=== PATIENT | male | born 1995 | race Caucasian/White ===

== ENCOUNTER 2018-02-24 21:31 | Inpatient (IN) ==
[2018-02-24 22:00] LABS: Basophils # 0.1 K/mcL (0.0-0.2); Basophils % 0.6 %; Eosinophils % 0.4 %; Hematocrit 46.4 % (37.5-50.1); Hemoglobin 16.4 g/dL (12.9-16.9); Immature Granulocytes % 0.2 % (0-4); Lymphocytes # 1.5 K/mcL (0.6-4.6); Lymphocytes % 17.2 %; Mean Corpuscular HGB Conc 35.3 g/dL (31.6-35.5); Mean Corpuscular Hemoglobin 30.8 pg (28.0-33.3); Mean Corpuscular Volume 87.1 fL (83.0-100.0); Mean Platelet Volume 12.3 fL (9.4-12.4); Monocytes # 0.6 K/mcL (0.0-1.3); Monocytes % 6.6 %; Neutrophils # 6.7 K/mcL (1.6-8.9); Platelet Count 223 K/mcL (140-400); Red Blood Count 5.33 M/mcL (4.19-5.50); Red Cell Distribution Width 12.1 % (11.5-14.5)
[2018-02-24 22:01] LABS: Bilirubin,Urine Negative (Negative); Blood,Urine Negative (Negative); Clarity,Urine Turbid (Clear); Color,Urine Yellow (Yellow); Glucose,Urine (UA) Normal (Normal); Ketones,Urine Trace mg/dL (Negative); Leukocyte Esterase,Urine Moderate (Negative); Nitrite,Urine Negative (Negative); Protein,Urine Trace mg/dL (Neg-Trace); Specific Gravity,Urine 1.027 (1.010-1.025); Urobilinogen,Urine Normal (Normal)
[2018-02-24 22:03] LABS: Bacteria,Urine None Seen per hpf (None-Few); Hyaline Casts,Urine Few per lpf (None-Few); Squamous Epithelial Cell,Urine Many per lpf (None-Few); WBC,Urine 30-50 per hpf (0-3)
[2018-02-24] MEDS ORDERED: Lidocaine/EPI 1:100k 1% 30 ML VIAL INFILT ONE (22:09)
--- NOTE | 2018-02-24 22:11 | Emergency Department Note ---
Disposition Clinical Impression: Laceration, Suicide attempt, History of chlamydia Disposition: Still a Patient Condition: Fair Referrals: NONE,PCP [Primary Care Provider] - Forms: ED Satisfaction Letter Psych HPI - General Chief Complaint: ED Psychiatric Symptoms Stated Complaint: SI Time Seen by Provider: 02/24/18 21:54 Source: patient, will call order clerk Mode of arrival: ambulatory Limitations: no limitations Nursing Notes Reviewed: Yes Vital Signs Reviewed: Yes - History of Present Illness HPI Narrative: 23-year-old male with history of anxiety and depression presents for evaluation of cutting and suicidal ideation. Patient states he got in our unit with his significant other. States that since any made several some clicking was to his left arm and punch several things that his right fist. Patient states he has a history of cutting in the past. Patient denies any intentional ingestion. Patient denies any homicidal ideation. Denies any drugs or alcohol use. Patient denies any medications to help with his depression. Denies any hallucinations or delusions. - Related Data Home Medications Medication Instructions Recorded Confirmed No Known Home Drugs 02/24/18 02/24/18 Allergies Allergy/AdvReac Type Severity Reaction Status Date / Time No Known Allergies Allergy Verified 12/01/17 09:18 All systems ED: reviewed and negative except as stated. Constitutional: Denies: fever Cardiovascular: Denies: chest pain Respiratory: Denies: cough, dyspnea Gastrointestinal: Denies: abdominal pain, nausea, vomiting Past Medical History - Past Medical History Source: patient Medical history: Reports: no medical history Psychiatric history: Reports: anxiety, depression, prior suicide attempt, previous psychiatric hospitalization - Social History Smoking Status: Former smoker Smokeless Tobacco Status: No Alcohol use: Reports: occasionally Drug use: Reports: none Physical Exam - General Limitations: no limitations General appearance: anxious - Head Head exam: atraumatic, normocephalic, normal inspection - Eye Eye exam: Present: normal appearance, PERRL, EOMI - ENT ENT exam: normal exam, normal oropharynx, mucous membranes moist - Neck Neck exam: Present: normal inspection, trachea midline - Chest Chest inspection: Present: normal inspection, symmetric chest wall rise - Respiratory Respiratory exam: Present: normal lung sounds bilaterally. Absent: respiratory distress - Cardiovascular Cardiovascular exam: Present: regular rate, normal rhythm. Absent: systolic murmur - Abdominal Exam Abdominal exam: Present: soft, Non-Tender - Expanded Upper Extremity Exam Shoulder exam: Present: normal inspection Arm exam: Present: normal inspection Elbow exam: Present: normal inspection Forearm/Wrist exam: Present: other (18 lacerations of varying degrees of on the volar aspect of the left forearm. Hemostatic.) Hand exam: Present: normal inspection, other (Evidence of superficial skin abrasions on the dorsal surface of the right hand.). Absent: tenderness Neuromotor exam: Normal: wrist extension, thumb opposition, thumb IP flexion, thumb adduction, fingers 2-5 abduction Vascular exam: Normal: capillary refill, radial pulse - Expanded Lower Extremity Exam Neurovascular/Tendon exam: Present: normal capillary refill - Back Exam Back exam: Present: normal inspection - Neurological Exam Neurological exam: Present: alert, oriented X3 - Skin Skin exam: Present: warm, dry, intact, normal color Course Course Narrative: Patient seen and examined. Patient will require sutures for some of the lacerations on the volar aspect of the left hand. Patient will also require medical clearance and psychiatric evaluation. Tetanus was updated. - Reevaluation(s) Reevaluation #1: Patient's wounds were repaired by the medical student. Under my supervision. Please see their documentation. Patient urine also showed signs of infection likely secondary to an STI. Patient was treated appropriately. Patient was medically cleared and will need to be evaluated by Ia. Patient will be signed out to the night supervisor provider. Patient does state that he has history of chlamydia and is sexually active. Patient will be empirically treated and instructions to follow-up with his primary care physician regarding that diagnosis. Patient also was given instructions on laceration and wound healing and watching for signs of infection. Patient will need sutures removed within 10 days. Time: 23:01 Vital Signs Temperature 99.1 F 02/24/18 21:35 Pulse Rate 105 02/24/18 21:35 Respiratory Rate 18 02/24/18 21:35 Blood Pressure 134/79 02/24/18 21:35 O2 Sat by Pulse Oximetry 97 02/24/18 21:35 Temperature 98.9 F 02/24/18 22:42 Pulse Rate 93 02/24/18 22:42 Respiratory Rate 18 02/24/18 22:42 Blood Pressure 111/76 02/24/18 22:42 O2 Sat by Pulse Oximetry 96 02/24/18 22:42 Oxygen Delivery Oxygen Delivery Room Air Psych - Lab Data Result diagrams: 02/24/18 21:45 02/24/18 21:45 Lab Results 02/24/18 02/24/18 02/24/18 Range/Units 21:43 21:45 21:45 WBC 8.9 (4.3-11.1) K/mcL RBC 5.33 (4.19-5.50) M/mcL Hgb 16.4 (12.9-16.9) g/dL Hct 46.4 (37.5-50.1) % MCV 87.1 (83.0-100.0) fL MCH 30.8 (28.0-33.3) pg MCHC 35.3 (31.6-35.5) g/dL RDW 12.1 (11.5-14.5) % Plt Count 223 (140-400) K/mcL MPV 12.3 (9.4-12.4) fL Immature Gran % 0.2 (0-4) % Seg Neutrophils % 75.0 % Lymphocytes % 17.2 % Monocytes % 6.6 % Eosinophils % 0.4 % Basophils % 0.6 % Neutrophils # 6.7 (1.6-8.9) K/mcL Lymphocytes # 1.5 (0.6-4.6) K/mcL Monocytes # 0.6 (0.0-1.3) K/mcL Eosinophils # 0.0 (0.0-0.6) K/mcL Basophils # 0.1 (0.0-0.2) K/mcL Sodium 140 (136-145) mEq/L Potassium 3.9 (3.5-5.1) mEq/L Chloride 105 (98-107) mEq/L Carbon Dioxide 25 (23-29) mEq/L BUN 12 (6-20) mg/dL Creatinine 0.98 (0.70-1.30) mg/dL Est GFR ( Amer) > 60 (> 60) Est GFR (Non-Af Amer) > 60 (> 60) BUN/Creatinine Ratio 12 (6-26) Glucose 97 (70-105) mg/dL Calculated Osmolality 290 (280-300) Calcium 10.4 H (8.6-10.3) mg/dL Urine Color Yellow (Yellow) Urine Clarity Turbid A (Clear) Urine pH 7.0 (5.0-8.0) pH Units Ur Specific [place] 1.027 H (1.010-1.025) Urine Protein Trace (Neg-Trace) mg/dL Urine Glucose (UA) Normal (Normal) mg/dL Urine Ketones Trace H (Negative) mg/dL Urine Blood Negative (Negative) Urine Nitrite Negative (Negative) Urine Bilirubin Negative (Negative) Urine Urobilinogen Normal (Normal) mg/dL Ur Leukocyte Esterase Moderate H (Negative) Urine Microscopic RBC 5-15 H (0-3) per hpf Urine Microscopic WBC 30-50 H (0-3) per hpf Ur Squamous Epith Cells Many H (None-Few) per lpf Urine Bacteria None Seen (None-Few) per hpf Hyaline Casts Few (None-Few) per lpf Ur Culture Indicated? NO. A (NO) Salicylates < 2.5 L (15.0-30.0) mg/dL Urine Opiates Screen (Qvgcxc=156) ng/mL Acetaminophen < 10 L (10-20) mcg/mL Ur Barbiturates Screen (Vqneex=131) ng/mL Ur Phencyclidine Scrn (Cutoff=25) ng/mL Ur Amphetamines Screen (Xrzxol=4158) ng/mL U Benzodiazepines Scrn (Iscdzy=524) ng/mL Urine Cocaine Screen (Cutoff= 300) ng/mL U Marijuana (THC) Screen (Cutoff = 50) ng/mL Ethyl Alcohol < 10 (Less than 10) mg/dL 02/24/18 Range/Units 21:49 WBC (4.3-11.1) K/mcL RBC (4.19-5.50) M/mcL Hgb (12.9-16.9) g/dL Hct (37.5-50.1) % MCV (83.0-100.0) fL MCH (28.0-33.3) pg MCHC (31.6-35.5) g/dL RDW (11.5-14.5) % Plt Count (140-400) K/mcL MPV (9.4-12.4) fL Immature Gran % (0-4) % Seg Neutrophils % % Lymphocytes % % Monocytes % % Eosinophils % % Basophils % % Neutrophils # (1.6-8.9) K/mcL Lymphocytes # (0.6-4.6) K/mcL Monocytes # (0.0-1.3) K/mcL Eosinophils # (0.0-0.6) K/mcL Basophils # (0.0-0.2) K/mcL Sodium (136-145) mEq/L Potassium (3.5-5.1) mEq/L Chloride (98-107) mEq/L Carbon Dioxide (23-29) mEq/L BUN (6-20) mg/dL Creatinine (0.70-1.30) mg/dL Est GFR ( Amer) (> 60) Est GFR (Non-Af Amer) (> 60) BUN/Creatinine Ratio (6-26) Glucose (70-105) mg/dL Calculated Osmolality (280-300) Calcium (8.6-10.3) mg/dL Urine Color (Yellow) Urine Clarity (Clear) Urine pH (5.0-8.0) pH Units Ur Specific [place] (1.010-1.025) Urine Protein (Neg-Trace) mg/dL Urine Glucose (UA) (Normal) mg/dL Urine Ketones (Negative) mg/dL Urine Blood (Negative) Urine Nitrite (Negative) Urine Bilirubin (Negative) Urine Urobilinogen (Normal) mg/dL Ur Leukocyte Esterase (Negative) Urine Microscopic RBC (0-3) per hpf Urine Microscopic WBC (0-3) per hpf Ur Squamous Epith Cells (None-Few) per lpf Urine Bacteria (None-Few) per hpf Hyaline Casts (None-Few) per lpf Ur Culture Indicated? (NO) Salicylates (15.0-30.0) mg/dL Urine Opiates Screen Negative (Dvismx=071) ng/mL Acetaminophen (10-20) mcg/mL Ur Barbiturates Screen Negative (Tuvgbr=786) ng/mL Ur Phencyclidine Scrn Negative (Cutoff=25) ng/mL Ur Amphetamines Screen Negative ([place]=0884) ng/mL U Benzodiazepines Scrn Negative (Mznnha=632) ng/mL Urine Cocaine Screen Negative (Cutoff= 300) ng/mL U Marijuana (THC) Screen Negative (Cutoff = 50) ng/mL Ethyl Alcohol (Less than 10) mg/dL Psychiatric Medical Clearance - Medical Clearance Checklist Medical History: No Social History Section defined Current Vitals: Last Vital Signs Temp 98.9 F 02/24/18 22:42 Pulse 93 02/24/18 22:42 Resp 18 02/24/18 22:42 BP 111/76 02/24/18 22:42 Pulse Ox 96 02/24/18 22:42 Psychiatric Lab Panel: Drug Levels and Toxicity 02/24/18 02/24/18 21:45 21:49 Urine Opiates Screen Negative Acetaminophen < 10 L Ur Barbiturates Screen Negative Ur Phencyclidine Scrn Negative Ur Amphetamines Screen Negative U Benzodiazepines Scrn Negative Urine Cocaine Screen Negative U Marijuana (THC) Screen Negative Ethyl Alcohol < 10 Abnormal Labs: Abnormal lab results Calcium 10.4 mg/dL (8.6-10.3) H 02/24/18 21:45 Urine Clarity Turbid (Clear) A 02/24/18 21:43 Ur Specific [place] 1.027 (1.010-1.025) H 02/24/18 21:43 Urine Ketones Trace mg/dL (Negative) H 02/24/18 21:43 Ur Leukocyte Esterase Moderate (Negative) H 02/24/18 21:43 Urine Microscopic RBC 5-15 per hpf (0-3) H 02/24/18 21:43 Urine Microscopic WBC 30-50 per hpf (0-3) H 02/24/18 21:43 Ur Squamous Epith Cells Many per lpf (None-Few) H 02/24/18 21:43 Ur Culture Indicated? NO. (NO) A 02/24/18 21:43 Salicylates < 2.5 mg/dL (15.0-30.0) L 02/24/18 21:45 Acetaminophen < 10 mcg/mL (10-20) L 02/24/18 21:45 Statement of Medical Clearance: I have evaluated the patient, reviewed diagnostic information, and certify that the patient's medical condition is sufficiently stable that transfer to the psychiatric unit does not pose a significant risk of deterioration. S.Lucien - Geena Situation: Demographics Background: Presenting Complaint Assessment: Vital Signs, Patient/Family Expectation Recommendation: Barrier(s) to disposition, Recommendation based on pending studies, treatments, or consults S.B.Andre Report Given to: Ge Vargas Time: 23:07
[2018-02-24 22:25] LABS: Acetaminophen < 10 mcg/mL (10-20); BUN/Creatinine Ratio 12 (6-26); Blood Urea Nitrogen 12 mg/dL (6-20); Calcium 10.4 mg/dL (8.6-10.3); Carbon Dioxide 25 mEq/L (23-29); Chloride 105 mEq/L (98-107); Ethanol < 10 mg/dL (Less than 10); Glucose 97 mg/dL (70-105); Osmolality,Calculated 290 (280-300); Potassium 3.9 mEq/L (3.5-5.1); Salicylate < 2.5 mg/dL (15.0-30.0); Sodium 140 mEq/L (136-145); eGFR For African Americans > 60 (> 60); eGFR For Non-African Americans > 60 (> 60)
[2018-02-24 22:26] LABS: Amphetamine Screen,Urine Negative ng/mL (Cutoff=1000); Barbiturate Screen,Urine Negative ng/mL (Cutoff=200); Benzodiazepines Screen,Urine Negative ng/mL (Cutoff=200); Cannabinoid Screen,Urine Negative ng/mL (Cutoff = 50); Cocaine Screen,Urine Negative ng/mL (Cutoff= 300); Opiate Screen,Urine Negative ng/mL (Cutoff=300); Phencyclidine Screen,Urine Negative ng/mL (Cutoff=25)
--- NOTE | 2018-02-24 22:45 | Emergency Department Note ---
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 Mode of arrival: ambulatory Limitations: no limitations - History of Present Illness Pain Scale: 0 - Related Data Home Medications Medication Instructions Recorded Confirmed No Known Home Drugs 02/24/18 02/24/18 Allergies Allergy/AdvReac Type Severity Reaction Status Date / Time No Known Allergies Allergy Verified 12/01/17 09:18 Constitutional: Denies: fever Cardiovascular: Denies: chest pain Respiratory: Denies: cough, dyspnea Gastrointestinal: Denies: abdominal pain, nausea, vomiting Past Medical History - Past Medical History Medical history: Reports: no medical history Psychiatric history: Reports: anxiety, depression, prior suicide attempt, previous psychiatric hospitalization - Social History Smoking Status: Former smoker Smokeless Tobacco Status: No Alcohol use: Reports: occasionally Drug use: Reports: none Physical Exam - General Limitations: no limitations General appearance: anxious Course Vital Signs Temperature 99.1 F 02/24/18 21:35 Pulse Rate 105 02/24/18 21:35 Respiratory Rate 18 02/24/18 21:35 Blood Pressure 134/79 02/24/18 21:35 O2 Sat by Pulse Oximetry 97 02/24/18 21:35 Temperature 98.9 F 02/24/18 22:42 Pulse Rate 93 02/24/18 22:42 Respiratory Rate 18 02/24/18 22:42 Blood Pressure 111/76 02/24/18 22:42 O2 Sat by Pulse Oximetry 96 02/24/18 22:42 Oxygen Delivery Oxygen Delivery Room Air Procedures - Laceration Laceration 1 Site: upper extremity Side (If applicable): left Size (cm): 3 Description: linear Depth: simple, single layer Local Anesthetic: lidocaine 1%, with epi Amount of Anesthesia Used (mL): 1 Pre-repair: wound explored, irrigated extensively, deep structures intact Skin layer closed with: other (Prolene) Size: 4-0 Number of sutures/stephanie: 2 Technique: simple, interrupted Laceration 2 Site: upper extremity Side (If applicable): left Size (cm): 4 Description: linear Depth: simple, single layer Local Anesthetic: lidocaine 1%, with epi Amount of Anesthesia Used (mL): 2 Pre-repair: wound explored, irrigated extensively, deep structures intact Skin layer closed with: other (Prolene) Size: 4-0 Number of sutures/stephanie: 6 Laceration 3 Site: upper extremity Side (If applicable): left Size (cm): 5 Description: linear Depth: simple, single layer Local Anesthetic: lidocaine 1%, with epi Amount of Anesthesia Used (mL): 2 Pre-repair: wound explored, irrigated extensively, deep structures intact Skin layer closed with: other (Prolene) Size: 4-0 Number of sutures/stephanie: 7 Technique: simple, interrupted Medical Decision Making - Lab Data Result diagrams: 02/24/18 21:45 02/24/18 21:45 Lab Results 02/24/18 02/24/18 02/24/18 Range/Units 21:43 21:45 21:45 WBC 8.9 (4.3-11.1) K/mcL RBC 5.33 (4.19-5.50) M/mcL Hgb 16.4 (12.9-16.9) g/dL Hct 46.4 (37.5-50.1) % MCV 87.1 (83.0-100.0) fL MCH 30.8 (28.0-33.3) pg MCHC 35.3 (31.6-35.5) g/dL RDW 12.1 (11.5-14.5) % Plt Count 223 (140-400) K/mcL MPV 12.3 (9.4-12.4) fL Immature Gran % 0.2 (0-4) % Seg Neutrophils % 75.0 % Lymphocytes % 17.2 % Monocytes % 6.6 % Eosinophils % 0.4 % Basophils % 0.6 % Neutrophils # 6.7 (1.6-8.9) K/mcL Lymphocytes # 1.5 (0.6-4.6) K/mcL Monocytes # 0.6 (0.0-1.3) K/mcL Eosinophils # 0.0 (0.0-0.6) K/mcL Basophils # 0.1 (0.0-0.2) K/mcL Sodium 140 (136-145) mEq/L Potassium 3.9 (3.5-5.1) mEq/L Chloride 105 (98-107) mEq/L Carbon Dioxide 25 (23-29) mEq/L BUN 12 (6-20) mg/dL Creatinine 0.98 (0.70-1.30) mg/dL Est GFR ( Amer) > 60 (> 60) Est GFR (Non-Af Amer) > 60 (> 60) BUN/Creatinine Ratio 12 (6-26) Glucose 97 (70-105) mg/dL Calculated Osmolality 290 (280-300) Calcium 10.4 H (8.6-10.3) mg/dL Urine Color Yellow (Yellow) Urine Clarity Turbid A (Clear) Urine pH 7.0 (5.0-8.0) pH Units Ur Specific [place] 1.027 H (1.010-1.025) Urine Protein Trace (Neg-Trace) mg/dL Urine Glucose (UA) Normal (Normal) mg/dL Urine Ketones Trace H (Negative) mg/dL Urine Blood Negative (Negative) Urine Nitrite Negative (Negative) Urine Bilirubin Negative (Negative) Urine Urobilinogen Normal (Normal) mg/dL Ur Leukocyte Esterase Moderate H (Negative) Urine Microscopic RBC 5-15 H (0-3) per hpf Urine Microscopic WBC 30-50 H (0-3) per hpf Ur Squamous Epith Cells Many H (None-Few) per lpf Urine Bacteria None Seen (None-Few) per hpf Hyaline Casts Few (None-Few) per lpf Ur Culture Indicated? NO. A (NO) Salicylates < 2.5 L (15.0-30.0) mg/dL Urine Opiates Screen (Gdodqm=248) ng/mL Acetaminophen < 10 L (10-20) mcg/mL Ur Barbiturates Screen (Zckpwe=032) ng/mL Ur Phencyclidine Scrn (Cutoff=25) ng/mL Ur Amphetamines Screen (Reeeth=2283) ng/mL U Benzodiazepines Scrn (Qgoubj=772) ng/mL Urine Cocaine Screen (Cutoff= 300) ng/mL U Marijuana (THC) Screen (Cutoff = 50) ng/mL Ethyl Alcohol < 10 (Less than 10) mg/dL 02/24/18 Range/Units 21:49 WBC (4.3-11.1) K/mcL RBC (4.19-5.50) M/mcL Hgb (12.9-16.9) g/dL Hct (37.5-50.1) % MCV (83.0-100.0) fL MCH (28.0-33.3) pg MCHC (31.6-35.5) g/dL RDW (11.5-14.5) % Plt Count (140-400) K/mcL MPV (9.4-12.4) fL Immature Gran % (0-4) % Seg Neutrophils % % Lymphocytes % % Monocytes % % Eosinophils % % Basophils % % Neutrophils # (1.6-8.9) K/mcL Lymphocytes # (0.6-4.6) K/mcL Monocytes # (0.0-1.3) K/mcL Eosinophils # (0.0-0.6) K/mcL Basophils # (0.0-0.2) K/mcL Sodium (136-145) mEq/L Potassium (3.5-5.1) mEq/L Chloride (98-107) mEq/L Carbon Dioxide (23-29) mEq/L BUN (6-20) mg/dL Creatinine (0.70-1.30) mg/dL Est GFR ( Amer) (> 60) Est GFR (Non-Af Amer) (> 60) BUN/Creatinine Ratio (6-26) Glucose (70-105) mg/dL Calculated Osmolality (280-300) Calcium (8.6-10.3) mg/dL Urine Color (Yellow) Urine Clarity (Clear) Urine pH (5.0-8.0) pH Units Ur Specific [place] (1.010-1.025) Urine Protein (Neg-Trace) mg/dL Urine Glucose (UA) (Normal) mg/dL Urine Ketones (Negative) mg/dL Urine Blood (Negative) Urine Nitrite (Negative) Urine Bilirubin (Negative) Urine Urobilinogen (Normal) mg/dL Ur Leukocyte Esterase (Negative) Urine Microscopic RBC (0-3) per hpf Urine Microscopic WBC (0-3) per hpf Ur Squamous Epith Cells (None-Few) per lpf Urine Bacteria (None-Few) per hpf Hyaline Casts (None-Few) per lpf Ur Culture Indicated? (NO) Salicylates (15.0-30.0) mg/dL Urine Opiates Screen Negative (Bhnsfe=421) ng/mL Acetaminophen (10-20) mcg/mL Ur Barbiturates Screen Negative (Oefldn=887) ng/mL Ur Phencyclidine Scrn Negative (Cutoff=25) ng/mL Ur Amphetamines Screen Negative (Ckwydd=7722) ng/mL U Benzodiazepines Scrn Negative (Bmkmet=835) ng/mL Urine Cocaine Screen Negative (Cutoff= 300) ng/mL U Marijuana (THC) Screen Negative (Cutoff = 50) ng/mL Ethyl Alcohol (Less than 10) mg/dL Attestation Statement - Attestation Attestation: I examined this patient and my medical decision-making was reviewed with the Resident Physician. I agree with the documented findings, disposition and treatment plan as described except to the extent set forth below. Patient to the ED with suicidal ideation. Self related behavior cutting his forearm. On examination patient has multiple lacerations the left forearm. Heart regular lungs clear. Plan. Sutured wound care. Medical clearance and evaluation by 1A. Patient medically cleared at this time. Will be signed out to night stocker pending psych eval.
[2018-02-24] MEDS ORDERED: cefTRIAXone 250 MG VIAL IM ONE (22:50)
[2018-02-24] MEDS ORDERED: Azithromycin 250 MG TABLET PO ONE (22:51)
--- NOTE | 2018-02-24 23:51 | Emergency Department Note ---
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 Mode of arrival: ambulatory - Related Data Home Medications Medication Instructions Recorded Confirmed No Known Home Drugs 02/24/18 02/24/18 Allergies Allergy/AdvReac Type Severity Reaction Status Date / Time No Known Allergies Allergy Verified 12/01/17 09:18 Constitutional: Denies: fever Cardiovascular: Denies: chest pain Respiratory: Denies: cough, dyspnea Gastrointestinal: Denies: abdominal pain, nausea, vomiting Past Medical History - Past Medical History Medical history: Reports: no medical history Psychiatric history: Reports: anxiety, depression, prior suicide attempt, previous psychiatric hospitalization - Social History Smoking Status: Former smoker Smokeless Tobacco Status: No Alcohol use: Reports: occasionally Drug use: Reports: none Physical Exam - General Limitations: no limitations General appearance: anxious Course Course Narrative: 2300: I have assumed care of this patient from Dr. Genao due to shift change. Please see her documentation for care performed prior to my arrival. Briefly, this is a 23-year-old male with a history of depression and anxiety that presented with thoughts of suicidal ideations. He was noted to have several self-inflicted lacerations to the bilateral upper extremities. These were repaired by the medical student. He has been medically cleared and is awaiting formal evaluation by inpatient psychiatry. 1226: I been notified by the psychiatric nurse that the patient will be admitted to . The psychiatrist request 2.5 mg of oral Haldol as well as 1 mg of oral Ativan. Vital Signs Temperature 99.1 F 02/24/18 21:35 Pulse Rate 105 02/24/18 21:35 Respiratory Rate 18 02/24/18 21:35 Blood Pressure 134/79 02/24/18 21:35 O2 Sat by Pulse Oximetry 97 02/24/18 21:35 Temperature 98.9 F 02/24/18 22:42 Pulse Rate 93 02/24/18 22:42 Respiratory Rate 18 02/24/18 22:42 Blood Pressure 111/76 02/24/18 22:42 O2 Sat by Pulse Oximetry 96 02/24/18 22:42 Oxygen Delivery Oxygen Delivery Room Air Psych - Lab Data Result diagrams: 02/24/18 21:45 02/24/18 21:45 Lab Results 02/24/18 02/24/18 02/24/18 Range/Units 21:43 21:45 21:45 WBC 8.9 (4.3-11.1) K/mcL RBC 5.33 (4.19-5.50) M/mcL Hgb 16.4 (12.9-16.9) g/dL Hct 46.4 (37.5-50.1) % MCV 87.1 (83.0-100.0) fL MCH 30.8 (28.0-33.3) pg MCHC 35.3 (31.6-35.5) g/dL RDW 12.1 (11.5-14.5) % Plt Count 223 (140-400) K/mcL MPV 12.3 (9.4-12.4) fL Immature Gran % 0.2 (0-4) % Seg Neutrophils % 75.0 % Lymphocytes % 17.2 % Monocytes % 6.6 % Eosinophils % 0.4 % Basophils % 0.6 % Neutrophils # 6.7 (1.6-8.9) K/mcL Lymphocytes # 1.5 (0.6-4.6) K/mcL Monocytes # 0.6 (0.0-1.3) K/mcL Eosinophils # 0.0 (0.0-0.6) K/mcL Basophils # 0.1 (0.0-0.2) K/mcL Sodium 140 (136-145) mEq/L Potassium 3.9 (3.5-5.1) mEq/L Chloride 105 (98-107) mEq/L Carbon Dioxide 25 (23-29) mEq/L BUN 12 (6-20) mg/dL Creatinine 0.98 (0.70-1.30) mg/dL Est GFR ( Amer) > 60 (> 60) Est GFR (Non-Af Amer) > 60 (> 60) BUN/Creatinine Ratio 12 (6-26) Glucose 97 (70-105) mg/dL Calculated Osmolality 290 (280-300) Calcium 10.4 H (8.6-10.3) mg/dL Urine Color Yellow (Yellow) Urine Clarity Turbid A (Clear) Urine pH 7.0 (5.0-8.0) pH Units Ur Specific [place] 1.027 H (1.010-1.025) Urine Protein Trace (Neg-Trace) mg/dL Urine Glucose (UA) Normal (Normal) mg/dL Urine Ketones Trace H (Negative) mg/dL Urine Blood Negative (Negative) Urine Nitrite Negative (Negative) Urine Bilirubin Negative (Negative) Urine Urobilinogen Normal (Normal) mg/dL Ur Leukocyte Esterase Moderate H (Negative) Urine Microscopic RBC 5-15 H (0-3) per hpf Urine Microscopic WBC 30-50 H (0-3) per hpf Ur Squamous Epith Cells Many H (None-Few) per lpf Urine Bacteria None Seen (None-Few) per hpf Hyaline Casts Few (None-Few) per lpf Ur Culture Indicated? NO. A (NO) Salicylates < 2.5 L (15.0-30.0) mg/dL Urine Opiates Screen (Qdrrng=513) ng/mL Acetaminophen < 10 L (10-20) mcg/mL Ur Barbiturates Screen (Yofznf=605) ng/mL Ur Phencyclidine Scrn (Cutoff=25) ng/mL Ur Amphetamines Screen (Vvbwol=4246) ng/mL U Benzodiazepines Scrn (Khgphi=896) ng/mL Urine Cocaine Screen (Cutoff= 300) ng/mL U Marijuana (THC) Screen (Cutoff = 50) ng/mL Ethyl Alcohol < 10 (Less than 10) mg/dL 02/24/18 Range/Units 21:49 WBC (4.3-11.1) K/mcL RBC (4.19-5.50) M/mcL Hgb (12.9-16.9) g/dL Hct (37.5-50.1) % MCV (83.0-100.0) fL MCH (28.0-33.3) pg MCHC (31.6-35.5) g/dL RDW (11.5-14.5) % Plt Count (140-400) K/mcL MPV (9.4-12.4) fL Immature Gran % (0-4) % Seg Neutrophils % % Lymphocytes % % Monocytes % % Eosinophils % % Basophils % % Neutrophils # (1.6-8.9) K/mcL Lymphocytes # (0.6-4.6) K/mcL Monocytes # (0.0-1.3) K/mcL Eosinophils # (0.0-0.6) K/mcL Basophils # (0.0-0.2) K/mcL Sodium (136-145) mEq/L Potassium (3.5-5.1) mEq/L Chloride (98-107) mEq/L Carbon Dioxide (23-29) mEq/L BUN (6-20) mg/dL Creatinine (0.70-1.30) mg/dL Est GFR ( Amer) (> 60) Est GFR (Non-Af Amer) (> 60) BUN/Creatinine Ratio (6-26) Glucose (70-105) mg/dL Calculated Osmolality (280-300) Calcium (8.6-10.3) mg/dL Urine Color (Yellow) Urine Clarity (Clear) Urine pH (5.0-8.0) pH Units Ur Specific [place] (1.010-1.025) Urine Protein (Neg-Trace) mg/dL Urine Glucose (UA) (Normal) mg/dL Urine Ketones (Negative) mg/dL Urine Blood (Negative) Urine Nitrite (Negative) Urine Bilirubin (Negative) Urine Urobilinogen (Normal) mg/dL Ur Leukocyte Esterase (Negative) Urine Microscopic RBC (0-3) per hpf Urine Microscopic WBC (0-3) per hpf Ur Squamous Epith Cells (None-Few) per lpf Urine Bacteria (None-Few) per hpf Hyaline Casts (None-Few) per lpf Ur Culture Indicated? (NO) Salicylates (15.0-30.0) mg/dL Urine Opiates Screen Negative (Kpeyjy=707) ng/mL Acetaminophen (10-20) mcg/mL Ur Barbiturates Screen Negative (Jzukth=236) ng/mL Ur Phencyclidine Scrn Negative (Cutoff=25) ng/mL Ur Amphetamines Screen Negative (Kbbpjs=0430) ng/mL U Benzodiazepines Scrn Negative (Sghapo=311) ng/mL Urine Cocaine Screen Negative (Cutoff= 300) ng/mL U Marijuana (THC) Screen Negative (Cutoff = 50) ng/mL Ethyl Alcohol (Less than 10) mg/dL Psychiatric Medical Clearance - Medical Clearance Checklist Medical History: No Social History Section defined Current Vitals: Last Vital Signs Temp 98.9 F 02/24/18 22:42 Pulse 93 02/24/18 22:42 Resp 18 02/24/18 22:42 BP 111/76 02/24/18 22:42 Pulse Ox 96 02/24/18 22:42 Psychiatric Lab Panel: Drug Levels and Toxicity 02/24/18 02/24/18 21:45 21:49 Urine Opiates Screen Negative Acetaminophen < 10 L Ur Barbiturates Screen Negative Ur Phencyclidine Scrn Negative Ur Amphetamines Screen Negative U Benzodiazepines Scrn Negative Urine Cocaine Screen Negative U Marijuana (THC) Screen Negative Ethyl Alcohol < 10 Abnormal Labs: Abnormal lab results Calcium 10.4 mg/dL (8.6-10.3) H 02/24/18 21:45 Urine Clarity Turbid (Clear) A 02/24/18 21:43 Ur Specific [place] 1.027 (1.010-1.025) H 02/24/18 21:43 Urine Ketones Trace mg/dL (Negative) H 02/24/18 21:43 Ur Leukocyte Esterase Moderate (Negative) H 02/24/18 21:43 Urine Microscopic RBC 5-15 per hpf (0-3) H 02/24/18 21:43 Urine Microscopic WBC 30-50 per hpf (0-3) H 02/24/18 21:43 Ur Squamous Epith Cells Many per lpf (None-Few) H 02/24/18 21:43 Ur Culture Indicated? NO. (NO) A 02/24/18 21:43 Salicylates < 2.5 mg/dL (15.0-30.0) L 02/24/18 21:45 Acetaminophen < 10 mcg/mL (10-20) L 02/24/18 21:45 Statement of Medical Clearance: I have evaluated the patient, reviewed diagnostic information, and certify that the patient's medical condition is sufficiently stable that transfer to the psychiatric unit does not pose a significant risk of deterioration.
[2018-02-25] MEDS ORDERED: Haloperidol Oral Conc 10 MG/5 ML UDC PO ONE (00:24)
[2018-02-25] MEDS ORDERED: *HR* LORazepam 1 MG TABLET PO ONE (00:24)
[2018-02-25] MEDS ORDERED: Mag Hydrox/Al Hydrox/Simeth 30 ML UDC PO PRN (02:41)
[2018-02-25] MEDS ORDERED: Acetaminophen 325 MG TABLET PO PRN (02:41)
[2018-02-25] MEDS ORDERED: traZODone 50 MG TABLET PO PRN (02:41)
[2018-02-25] MEDS ORDERED: hydrOXYzine pamoate 25 MG CAPSULE PO PRN (02:41)
[2018-02-25] MEDS ORDERED: Haloperidol Lactate 5 MG/ML VIAL IM PRN (02:41)
[2018-02-25] MEDS ORDERED: *HR* LORazepam 2 MG/ML VIAL IM PRN (02:41)
[2018-02-25] MEDS ORDERED: *HR* LORazepam 1 MG TABLET PO PRN (02:41)
[2018-02-25] MEDS ORDERED: MOM Conc 10 ML UD.LIQ PO PRN (02:41)
--- NOTE | 2018-02-25 07:44 | Psychiatry History & Physical ---
Date of Encounter: 02/25/18 Time of Encounter: 07:00 History of Present Illness Patient Stated Chief Complaint: I am depressed, I cut myself again Medicare Admission Attestation: For traditional Medicare patients the provided hospital inpatient services are reasonable and necessary and in the case of services not specified as inpatient -only under 42 CFR 419.22 (n), that they are appropriately provided as inpatient services in accordance 42 CFR 412.3. For Critical Access Hospital the patient may reasonably be expected to be discharged or transferred to a hospital within 96 hours after admission to the Critical Access Hospital. Admitted From: Emergency Dept Plans for Post Hospital Care: Home History of Present Illness: Pt is a 23 yo ,, male, marriedx1, with no children, with 5 cats who presents for depression and anxiety . Pt cut his are to reduce stress. Pt noted he currently lives in [place], [place] with my . Pt noted recent exacerbation of depression. Pt states when I came in I thought I wanted to hurt myself. Pt noted I came in because I needed some help I feel much better now. I feel safe and comfortable on the unit. Pt denied any side effects to current medications. Pt was in agreement with current treatment plan. Pt noted that he is doing alright today. Pt noted he slept 6 hours broken night. Pt noted his appetite is its down. Pt rated his depression a 1, on a scale of zero to ten with ten being the worst and zero being none. Pt rate his anxiety a 1, on the same scale. Pt denied any auditory or visual hallucinations. Pt denied any current thoughts to harm himself or anyone else. Pt noted that both his parents are alive and live in [place], [place]. Pt noted that his highest level of education is [employer]. Pt noted he is currently employed [employer] . Pt noted multiple inpt psychiatric hospitalizations (age [age]). Pt noted previous suicide attempt when I was 16 via cutting. Pt denied any family hx of suicides. PT denied any family mental health hx. Pt noted he has had previous manic episodes Pt noted quetipine worked great for his depression Pt denied HEP C, HIV, TBIs or seizures. No TD noted, AIMS=0 Assessment/Plan 1.Interval hx 2.Continue current medications 3.Review current labs 4.Pt had an opportunity to ask questions and discuss current treatment plan. 5.Supportive therapy was provided 6.Pt encouraged to consider group or individual therapy 7.Pt was in agreement with treatment plan. 8.Pt was educated on the risks benefits and side effects of current medications. 9.Start Depakote 1000 mg PO QHS for mood 10.Start Quetipaine 50 mg PO QHS for mood. 11.Coordinate out pt follow up appointment. Past Med Surg Social Fam HX - Past Medical History Medical history: no medical history - Past Psychiatric History Psychiatric history: Reports: bipolar, depression, prior suicide attempt, previous psychiatric hospitalization Family psychiatric history: No Family History of Suicide: None - Social History Smoking Status: Current every day smoker Smokeless Tobacco Status: No Alcohol use: occasionally, recent Drug use: none Medications & Allergies No Known Home Drugs 02/24/18 [History] 3 Allergy/AdvReac Type Severity Reaction Status Date / Time No Known Allergies Allergy Verified 02/25/18 06:42 Review of Systems Constitutional: Denies: fever, chills, weakness, weight change Eyes: Denies: eye pain, vision change Ears, Nose, Throat: Denies: ear pain, throat pain, dental pain, hearing loss, congestion Cardiovascular: Denies: chest pain, palpitations, dyspnea on exertion Respiratory: Denies: cough, dyspnea, wheezes Gastrointestinal: Denies: abdominal pain, nausea, vomiting, diarrhea, constipation Genitourinary male: Denies: urgency, dysuria, frequency, genital lesions Musculoskeletal: Denies: joint swelling, joint pain Integumentary: Denies: rash, lesions, pruritus Neurological: Denies: headache, weakness, numbness, memory loss Psychiatric: Reports: depression, abnormal sleep pattern, suicidal ideation, mood swings Endocrine: Denies: fatigue, heat or cold intolerance Hematologic/Lymphatic: Denies: easy bruising, lymphadenopathy Allergic/Immunologic: Denies: urticaria, itchy eyes Exam - HEENT Head exam IM: Present: atraumatic Eye exam IM: Present: EOMI, normal appearance, PERRL ENT exam IM: Present: normal exam - Neurological Neurological exam: Present: CN II-XII intact - Respiratory Respiratory exam IM: Present: CTAB - GI/Abdominal GI/Abdominal exam IM: Present: normal bowel sounds, soft. Absent: tenderness - Extremities Extremities exam IM: Present: full ROM - Skin Skin exam IM: Present: abrasion (superficial cutting to left forearm), dry, warm - Constitutional Vitals: Temp Pulse Resp BP Pulse Ox 98.5 F 85 18 125/84 96 02/25/18 03:52 02/25/18 03:52 02/25/18 03:52 02/25/18 03:52 02/24/18 22:42 General appearance: age & developmentally appropriate, well-groomed, well- nourished - Musculoskeletal Gait: normal Station: relaxed Strength & Tone: normal for patient - Psychiatric Patient Orientation: Yes Person, Yes Time, Yes Place Level of alertness: Alert Behavior: calm, cooperative Psychomotor activity: Normal Eye Contact: Maintains Eye Contact Mood Description: Euthymic/stable, Depressed Affect description: congruent with mood, full range, dysphoric Speech Volume: Normal Speech pattern: normal rate, normal rhythm, normal tone, fluent, spontaneous Language & Vocabulary: consistent with education Thought Process: Linear, Goal Oriented Thought Content: Yes Suicidal ideation, No Homicidal ideation, No Overt delusions Perceptual Disturbances: No Auditory hallucinations, No Visual hallucinations Attention Span Ability: Capable of Focused Attention Memory Description: Grossly Intact Patient Reliability: Reliable Historian Fund of knowledge: Yes abstraction ability, Yes average, Yes aware of current events Intelligence Estimate: Average Judgment: Limited Insight: Partial Results - Labs Labs: Laboratory Last Values WBC 8.9 K/mcL (4.3-11.1) 02/24/18 21:45 RBC 5.33 M/mcL (4.19-5.50) 02/24/18 21:45 Hgb 16.4 g/dL (12.9-16.9) 02/24/18 21:45 Hct 46.4 % (37.5-50.1) 02/24/18 21:45 MCV 87.1 fL (83.0-100.0) 02/24/18 21:45 MCH 30.8 pg (28.0-33.3) 02/24/18 21:45 MCHC 35.3 g/dL (31.6-35.5) 02/24/18 21:45 RDW 12.1 % (11.5-14.5) 02/24/18 21:45 Plt Count 223 K/mcL (140-400) 02/24/18 21:45 MPV 12.3 fL (9.4-12.4) 02/24/18 21:45 Immature Gran % 0.2 % (0-4) 02/24/18 21:45 Seg Neutrophils % 75.0 % 02/24/18 21:45 Lymphocytes % 17.2 % 02/24/18 21:45 Monocytes % 6.6 % 02/24/18 21:45 Eosinophils % 0.4 % 02/24/18 21:45 Basophils % 0.6 % 02/24/18 21:45 Neutrophils # 6.7 K/mcL (1.6-8.9) 02/24/18 21:45 Lymphocytes # 1.5 K/mcL (0.6-4.6) 02/24/18 21:45 Monocytes # 0.6 K/mcL (0.0-1.3) 02/24/18 21:45 Eosinophils # 0.0 K/mcL (0.0-0.6) 02/24/18 21:45 Basophils # 0.1 K/mcL (0.0-0.2) 02/24/18 21:45 Sodium 140 mEq/L (136-145) 02/24/18 21:45 Potassium 3.9 mEq/L (3.5-5.1) 02/24/18 21:45 Chloride 105 mEq/L (98-107) 02/24/18 21:45 Carbon Dioxide 25 mEq/L (23-29) 02/24/18 21:45 BUN 12 mg/dL (6-20) 02/24/18 21:45 Creatinine 0.98 mg/dL (0.70-1.30) 02/24/18 21:45 Est GFR ( Amer) > 60 (> 60) 02/24/18 21:45 Est GFR (Non-Af Amer) > 60 (> 60) 02/24/18 21:45 BUN/Creatinine Ratio 12 (6-26) 02/24/18 21:45 Glucose 97 mg/dL (70-105) 02/24/18 21:45 Calculated Osmolality 290 (280-300) 02/24/18 21:45 Calcium 10.4 mg/dL (8.6-10.3) H 02/24/18 21:45 Urine Color Yellow (Yellow) 02/24/18 21:43 Urine Clarity Turbid (Clear) A 02/24/18 21:43 Urine pH 7.0 pH Units (5.0-8.0) 02/24/18 21:43 Ur Specific [place] 1.027 (1.010-1.025) H 02/24/18 21:43 Urine Protein Trace mg/dL (Neg-Trace) 02/24/18 21:43 Urine Glucose (UA) Normal mg/dL (Normal) 02/24/18 21:43 Urine Ketones Trace mg/dL (Negative) H 02/24/18 21:43 Urine Blood Negative (Negative) 02/24/18 21:43 Urine Nitrite Negative (Negative) 02/24/18 21:43 Urine Bilirubin Negative (Negative) 02/24/18 21:43 Urine Urobilinogen Normal mg/dL (Normal) 02/24/18 21:43 Ur Leukocyte Esterase Moderate (Negative) H 02/24/18 21:43 Urine Microscopic RBC 5-15 per hpf (0-3) H 02/24/18 21:43 Urine Microscopic WBC 30-50 per hpf (0-3) H 02/24/18 21:43 Ur Squamous Epith Cells Many per lpf (None-Few) H 02/24/18 21:43 Urine Bacteria None Seen per hpf (None-Few) 02/24/18 21:43 Hyaline Casts Few per lpf (None-Few) 02/24/18 21:43 Ur Culture Indicated? NO. (NO) A 02/24/18 21:43 Salicylates < 2.5 mg/dL (15.0-30.0) L 02/24/18 21:45 Urine Opiates Screen Negative ng/mL (Cogdpj=083) 02/24/18 21:49 Acetaminophen < 10 mcg/mL (10-20) L 02/24/18 21:45 Ur Barbiturates Screen Negative ng/mL (Djwcjl=278) 02/24/18 21:49 Ur Phencyclidine Scrn Negative ng/mL (Cutoff=25) 02/24/18 21:49 Ur Amphetamines Screen Negative ng/mL (Njkziz=7597) 02/24/18 21:49 U Benzodiazepines Scrn Negative ng/mL (Obbxxb=321) 02/24/18 21:49 Urine Cocaine Screen Negative ng/mL (Cutoff= 300) 02/24/18 21:49 U Marijuana (THC) Screen Negative ng/mL (Cutoff = 50) 02/24/18 21:49 Ethyl Alcohol < 10 mg/dL (Less than 10) 02/24/18 21:45 Assessment and Plan (1) Bipolar 1 disorder, depressed Current visit: Yes Status: Acute Plan: Admit inpatient for safety and stabilization, Close observation, Suicide Precautions per unit protocol, Encourage participation in unit milieu, Group Therapy, Monitor sleep, Monitor appetite Risks, benefits, side effects, alternatives discussed w/pt: Yes Patient agreeable to treatment: Yes Plans for Post Hospital Care: Home (2) Personality disorder in adult Current visit: Yes Status: Acute Plan: Admit inpatient for safety and stabilization, Close observation, Suicide Precautions per unit protocol, Encourage participation in unit milieu, Group Therapy, Monitor sleep, Monitor appetite Risks, benefits, side effects, alternatives discussed w/pt: Yes Patient agreeable to treatment: Yes Plans for Post Hospital Care: Home (3) Laceration Current visit: Yes Status: Acute Plan: Admit inpatient for safety and stabilization, Close observation, Suicide Precautions per unit protocol, Encourage participation in unit milieu, Group Therapy, Monitor sleep, Monitor appetite Risks, benefits, side effects, alternatives discussed w/pt: Yes Patient agreeable to treatment: Yes Plans for Post Hospital Care: Home (4) Suicide attempt Current visit: Yes Status: Acute Plan: Admit inpatient for safety and stabilization, Close observation, Suicide Precautions per unit protocol, Encourage participation in unit milieu, Group Therapy, Monitor sleep, Monitor appetite Risks, benefits, side effects, alternatives discussed w/pt: Yes Patient agreeable to treatment: Yes Plans for Post Hospital Care: Home
[2018-02-25] MEDS: Nicotine 21 MG PATCH.TD24 TD SCH (08:53)
[2018-02-25 08:56] LABS: Alanine Aminotransferase 17 Units/L (7-52); Albumin 4.5 g/dL (3.5-5.7); Albumin/Globulin Ratio 1.6 (1.1-2.2); Alkaline Phosphatase 54 Units/L (34-104); Aspartate Amino Transferase 21 Units/L (13-39); BUN/Creatinine Ratio 13 (6-26); Bilirubin,Total 0.7 mg/dL (0.3-1.0); Blood Urea Nitrogen 13 mg/dL (6-20); Calcium 10.2 mg/dL (8.6-10.3); Carbon Dioxide 28 mEq/L (23-29); Chloride 105 mEq/L (98-107); Globulin 2.8 g/dL (2.4-3.5); Glucose 86 mg/dL (70-105); Osmolality,Calculated 289 (280-300); Potassium 3.9 mEq/L (3.5-5.1); Sodium 140 mEq/L (136-145); Total Protein 7.3 g/dL (6.4-8.9); eGFR For African Americans > 60 (> 60); eGFR For Non-African Americans > 60 (> 60)
[2018-02-25] MEDS ORDERED: Divalproex (24 HR) 500 MG TABLET PO SCH (21:00)
[2018-02-26] MEDS: Nicotine 21 MG PATCH.TD24 TD SCH (08:20)
--- NOTE | 2018-02-26 08:57 | Discharge Summary ---
Date of Encounter: 02/26/18 Time of Encounter: 08:00 Diagnosis - Discharge Diagnosis (1) Bipolar 1 disorder, depressed Status: Acute (2) Personality disorder in adult Status: Acute (3) Laceration Status: Acute (4) Suicide attempt Status: Acute Medications - Discharge Medications Prescriptions: Divalproex (24 HR) [Depakote ER (24 HR)] 1,000 mg PO HS #30 tab.er.24h Quetiapine Fumarate [Seroquel] 50 mg PO HS #30 tablet Divalproex (24 HR) [Depakote ER (24 HR)] 1,000 mg PO HS #30 tab.er.24h 02/26/18 [Rx] Quetiapine Fumarate [Seroquel] 50 mg PO HS #30 tablet 02/26/18 [Rx] 3 Allergy/AdvReac Type Severity Reaction Status Date / Time No Known Allergies Allergy Verified 02/25/18 06:42 Provider Date of admission: 02/25/18 09:37 Primary care physician: PCP NONE Discharging clinician: Yash Perales Psychiatry Exam - Constitutional Vitals: Temp Pulse Resp BP Pulse Ox 97.9 F 64 16 117/73 96 02/25/18 20:10 02/25/18 20:10 02/25/18 20:10 02/25/18 20:10 02/24/18 22:42 General appearance: age & developmentally appropriate, well-groomed, well- nourished - Musculoskeletal Gait: normal Station: relaxed Strength & Tone: normal for patient - Psychiatric Patient Orientation: Yes Person, Yes Time, Yes Place Level of alertness: Alert Behavior: calm, cooperative Psychomotor activity: Normal Eye Contact: Maintains Eye Contact Mood Description: Euthymic/stable Affect description: congruent with mood, full range Speech Volume: Normal Speech pattern: normal rate, normal rhythm, normal tone, fluent, spontaneous Language & Vocabulary: consistent with education Thought Process: Linear, Goal Oriented Thought Content: No Suicidal ideation, No Homicidal ideation, No Overt delusions Perceptual Disturbances: No Auditory hallucinations, No Visual hallucinations Attention Span Ability: Capable of Focused Attention Memory Description: Grossly Intact Patient Reliability: Reliable Historian Fund of knowledge: Yes abstraction ability, Yes aware of current events Intelligence Estimate: Average Judgment: Limited Insight: Partial Hospital Course Hospital course: Pt is a 23 yo ,, male, marriedx1, with no children, with 5 cats who presents for depression and anxiety . Pt cut his are to reduce stress. Pt noted he currently lives in [place], [place] with my . Pt noted recent exacerbation of depression. Pt noted significant improvement from admission. Pt noted he felt his medications were working "really good." Pt noted I came in because I needed some help I feel much better now, thank you. PT noted I feel safe and comfortable on the unit. Pt denied any side effects to current medications. Pt was in agreement with current treatment plan. Pt noted that he is doing alright today. Pt noted he slept 6 hours broken night. Pt noted his appetite is good. Pt rated his depression a 0, on a scale of zero to ten with ten being the worst and zero being none. Pt rate his anxiety a 0, on the same scale. Pt denied any auditory or visual hallucinations. Pt denied any current thoughts to harm himself or anyone else. Pt noted he is currently employed [employer] . PT noted he feels safe and comfortable for discharge home. Pt noted he has had previous manic episodes Pt noted quetipine continues to work great for his depression Pt denied HEP C, HIV, TBIs or seizures. No TD noted, AIMS=0 Assessment/Plan 1.Interval hx 2.Continue current medications 3.Review current labs 4.Pt had an opportunity to ask questions and discuss current treatment plan. 5.Supportive therapy was provided 6.Pt encouraged to consider group or individual therapy 7.Pt was in agreement with treatment plan. 8.Pt was educated on the risks benefits and side effects of current medications. 9. Coordinate follow up labs in 5 days 10. Follow up Mental health with out pt provider 11. Take all medications as prescribed 12. abstain from any alcohol or illict substances. Time spent discussing smoking cessation with patient: 3 to 10 minutes Does patient wish to continue nicotine replacement upon disc: No - Time Spent with Patient Total time spent providing and/or coordinating discharge services: Greater than 30 minutes Assessment and Plan - Patient/Caregiver Discharge Instructions Activity: resume usual activities as tolerated Diet: regular diet - Follow up Plan Follow up with: Quincy Harris [Outside] - 03/01/18 10:30 am (The above appointment is with Mark Mathew for outpatient mental health counseling.Please bring photo ID and insurance card.) [facility] [employer] [facility] [Outside] - 03/05/18 3:30 pm (The above appointment is with Mali Light CNP, for outpatient psychiatric assessment and medication management. Please bring insurance card and photo ID. *Arrive 15 minutes early for paperwork*) Overall status at discharge: Stable Disposition: Home, Self-Care Quality - Multiple Antipsychotics Patient discharged on 2 or more antipsychotic medications: No - Justification Documentation of: Other justification (PT D/C'd on one antipsychotic) Procedures - Procedures Procedures: Medication Management, Crisis Stabilization, Supportive Therapy, Group Therapy, Psychoeducational Therapy
[2018-02-26 09:05] VITALS: BP 116/68
== END 2018-02-26 11:15 | disposition home or self-care (01) | DRG 885 ==
LOC: 1ANU 21:31 → EMEROO 21:31 → 1ANU 02-25 01:00
PROVIDERS: ADMIT General Practice; ATTEND General Practice